=== PATIENT | female | born 1935 | race Caucasian/White ===

== ENCOUNTER 2022-12-04 20:45 | Emergency (ER) | payer OTHER ==
[~2022-12-04] VITALS: Ht 152.4 cm; Wt 64.4 kg
[2022-12-04] MEDS ORDERED: DULOXETINE HCL40 MG (21:03)
[2022-12-04] MEDS ORDERED: DIOVAN160 M1 (21:03)
[2022-12-04] MEDS ORDERED: HYDRALAZINE HCL10 MG (21:03)
[2022-12-04] MEDS ORDERED: FENOFIBRATE150 MG (21:04)
[2022-12-04] MEDS ORDERED: XARELTO15 MG (21:04)
[2022-12-04] MEDS ORDERED: GLIPIZIDE XL2.5 MG (21:04)
[2022-12-04] MEDS ORDERED: TRADJENTA5 MG (21:04)
[2022-12-04] MEDS ORDERED: NAMENDA10 MG (21:04)
[2022-12-04] MEDS ORDERED: LEVOTHYROXINE25 MCG (21:05)
== END 2022-12-04 23:25 | disposition home or self-care (01) ==
LOC: ER 20:45
DX: R07.89 Other chest pain (principal); Z91.013 Allergy to seafood; Z91.041 Radiographic dye allergy status; Z20.822 Contact with and (suspected) exposure to COVID-19